=== PATIENT | female | born 1990 | race Caucasian/White ===

== ENCOUNTER 2019-11-26 07:39 | Inpatient (IN) | payer OTHER ==
[2019-11-26 08:19] VITALS: BMI 39.1
[2019-11-26] MEDS ORDERED: Butorphanol Tartrate 1 MG/ML VIAL SLOW IVP PRN (09:01)
[2019-11-26] MEDS ORDERED: hydrALAZINE 20 MG/ML VIAL SLOW IVP PRN (09:01)
[2019-11-26] MEDS ORDERED: NS / Oxytocin 40 units/1000ml 1,000 ML IV PRN (09:01)
[2019-11-26] MEDS ORDERED: Ondansetron PF 4 MG/2 ML Vial IVP PRN (09:01)
[2019-11-26] MEDS ORDERED: Lidocaine 1% (PF) 30 ML VIAL SC PRN (09:01)
[2019-11-26] MEDS ORDERED: Ibuprofen 800 MG TAB PO PRN (09:01)
[2019-11-26] MEDS ORDERED: HYDROcodone/Acetaminophen 5/325 mg Tablet PO PRN ×2 (09:01)
[2019-11-26] MEDS ORDERED: Lactated Ringer's 1,000 ML IV SCH (09:15)
[2019-11-26 09:36] LABS: Hemoglobin 10.4 g/dL (12.0-16.0); Mean Corpuscular HGB CONC 33.5 g/dL (32.0-36.0); Mean Corpuscular Hemoglobin 26.9 pg (27.0-31.0); Mean Corpuscular Volume 80.4 fL (78.0-98.0); Mean Platelet Volume 10.3 fL (7.4-10.4); Platelet Count 249 thou/uL (130-400); RBC Distribution Width 15.6 % (11.5-14.5); Red Blood Cell (RBC) Count 3.88 mill/uL (4.20-5.40); White Blood Cell (WBC) Count 9.9 thou/uL (4.8-10.8)
[2019-11-26 09:55] LABS: HBSAg Index 0.17 S/CO (0-0.99); Hep B Surf Ag Non-Reactive S/CO (NonReactive); Syphilis Antibody Nonreactive (Nonreactive); Syphilis Antibody Index 0.03 S/CO (<1.00 Non-Reactive)
[2019-11-26] MEDS ORDERED: Lidocaine 1% (PF) 30 ML VIAL ONE (11:13)
[2019-11-26] MEDS ORDERED: NS / Oxytocin 40 units/1000ml 1,000 ML ONE (11:13)
[2019-11-26] MEDS ORDERED: Methylergonovine 0.2 MG/ML VIAL ONE (11:14)
[2019-11-26] MEDS ORDERED: Misoprostol 200 MCG TAB ONE (11:15)
[2019-11-26] MEDS ORDERED: Oxytocin 10 UNITS/ML VIAL ONE (12:12)
[2019-11-26] MEDS ORDERED: NS w/ Oxytocin 10 units 500 ML IV SCH (12:15)
--- NOTE | 2019-11-26 23:55 | PDOC.EVN ---
Event Note - Event Note Event Note: Pt desire discharge home. She is s/p tsvd for dui measuring 29wks on last u/s. She reports minimal bleeding. She has been counselled to seek medical attention if fever or increased bleeding. NEeds to f/u in 2weeks with provider of choice.
--- NOTE | 2019-11-27 01:10 | OP ---
DATE OF PROCEDURE: 11/26/2019 The patient delivered a stillborn fetus at 37 weeks gestation by a term spontaneous vaginal delivery at 1837 hours on 11/26 2019. Weight was 1860 g. Sex is female. Apgars were zero and zero. Placenta delivered spontaneously followed by Pitocin infusion. There were no lacerations. Quantitative blood loss [address] Becerra is the delivering physician. Counts were correct. Mother is stable in the room in the immediate . Fetus appeared macerated slightly with the skin peeling. The head was grossly distorted with the posterior suture deeply caved in. The cord was dark brown in color. Job ID: [id number]
--- NOTE | 2019-11-29 21:48 | PQF ---
CLINICAL DOCUMENTATION CLARIFICATION FORM: Dear : Tu Becerra Date / Time: 11/29/20192146 Please exercise your independent, professional judgment in responding to the clarification form. Clinical indicators are provided on the bottom of this form for your review Clarification of Pathology report: Please check appropriate box(es): [ ] Agree w the pathology finding of: Acute Chorioamnionitis [ ] Other explanation of pathology findings (please specify) [ ] Other diagnosis [x ] Unable to determine Physician Signature: Date/Time: For continuity of documentation, please document condition throughout progress notes and discharge summary. Thank You. To be completed by CDI/Coding staff for physician review: Present Clinical Indicators - Signs / Symptoms / Labs Results and Location in Medical Record [X] Membranes Early Acute Chorioamnionitis Pathology report 11/27 Dr Simmons [X] WBC 9.9, Plt count 249, RBC 3.88, Hgb 10.4, Hct Laboratory 11/25 [X] Delivered a stillborn fetus Operative report Dr Becerra 11/25 Present Risk Factors Results and Location in Medical Record [X] 37 weeks gestation Operative report Dr Becerra 11/25 [X] s/p Operative report Dr Becerra 11/25 Present Treatments Results and Location in Medical Record [X] IV Lactated Ringers 1L MAY 07 [X] IV Oxytocin 40 units MAY 07 CDS/Clinical Business Manager Signature: Loraine Toro Phone #: [phone] Date/Time: 11/29/20192146 This is a permanent part of the Medical Record [facility]
== END 2019-11-27 00:43 | disposition home or self-care (01) | DRG 807 ==
LOC: L&D 07:39
PROVIDERS: ADMIT Obstetrics & Gynecology; ATTEND Obstetrics & Gynecology
PROC: 10E0XZZ Delivery of Products of Conception, External Approach (ICD-10-PCS; principal; 2019-11-26)
DX: O36.4XX0 Maternal care for intrauterine death, not applicable or unspecified (principal); Z37.1 Single stillbirth; Z3A.37 37 weeks gestation of pregnancy
CPT/HCPCS: 36415; 85027; 86780; 86850; 86900; 86901; 87340; 88307; 99285; J2001; J2210; J2590